=== PATIENT | female | born 1985 | race Caucasian/White ===

== ENCOUNTER 2017-01-06 14:21 | Emergency (ER) | payer OTHER ==
[~2017-01-06] VITALS: Ht 154.9 cm; Wt 87.2 kg
[2017-01-06 15:17] LABS: HEMATOCRIT 43.1 % (36.0-46.0); MCH 26.2 PG (29.0-34.0); MCHC 31.1 G/DL (30.0-36.0); MCV 84.2 FL (83-99); MEAN PLAT.VOLUME 11.1 uM^3 (9.5-12.4); PLATELET COUNT 222 K/uL (156-360); RBC DIS.WIDTH-CV 13.1 % (11.8-14.6); RBC DIS.WIDTH-SD 40.3 % (39-53); RED BLOOD COUNT 5.12 M/uL (3.80-5.20); WHITE BLOOD COUNT 5.1 K/uL (4.1-10.2)
[2017-01-06 15:31] LABS: CHLORIDE 106 mEq/L (99-109); POTASSIUM 3.8 mEq/L (3.7-5.4); SODIUM 138 mEq/L (136-147)
[2017-01-06 15:33] LABS: GLUCOSE 95 mg/dL (70-99)
[2017-01-06 15:34] LABS: ANION GAP 7 MEQ/L (2-14)
[2017-01-06 15:35] LABS: TOTAL BILIRUBIN 0.4 mg/dL (0.0-1.0)
[2017-01-06 15:37] LABS: ALKALINE PHOSPHATASE 52 IU/L (3-129); GFR ESTIMATE (CALCULATED) > 59 mL/min/
[2017-01-06 15:38] LABS: UREA NITROGEN (BUN) 10 mg/dL (9-23)
[2017-01-06 15:45] LABS: QUANTITATIVE HCG < 4.0 MIU/ML
[2017-01-06 17:14] LABS: BILIRUBIN NEGATIVE; BLOOD NEGATIVE; COLOR YELLOW ((YELLOW)); GLUCOSE (STRIP) NEGATIVE; KETONES 5; LEUKOCYTES NEGATIVE; NITRITE NEGATIVE; PROTEIN (STRIP) NEGATIVE; SPECIFIC GRAVITY 1.028 (1.000-1.030)
[2017-01-06 17:15] LABS: ADD MIUA? NO; UCUL ADDED? NO
[2017-01-06 18:16] LABS: INFLUENZA A VIRAL ANTIGEN NEGATIVE; INFLUENZA B VIRAL ANTIGEN NEGATIVE
[2017-01-06] MEDS ORDERED: ZOFRAN ODT4 MG PO (18:43)
[2017-01-06] MEDS ORDERED: NAPROSYN500 MG PO (18:43)
[2017-01-06 19:03] VITALS: BP 110/69
== END 2017-01-06 19:17 | disposition home or self-care (01) ==
LOC: EME 14:21
PROVIDERS: Physician Assistant
DX: B34.9 Viral infection, unspecified (principal); R11.0 Nausea; R51 Headache; R10.9 Unspecified abdominal pain; M79.1 Myalgia
CPT/HCPCS: 80053; 81003; 84702; 85027; 87502; 87651 90; 99281; 99285

== ENCOUNTER 2017-10-12 06:06 | Emergency (ER) | payer OTHER ==
[~2017-10-12] VITALS: Ht 154.9 cm; Wt 97.8 kg
[~2017-10-12 06:06] MED LIST: NAPROSYN500 MG PO; ZOFRAN ODT4 MG PO
[2017-10-12 07:34] LABS: HEMATOCRIT 43.2 % (36.0-46.0); HEMOGLOBIN 13.9 G/DL (11.9-15.5); MCH 26.4 PG (29.0-34.0); MCHC 32.2 G/DL (30.0-36.0); MCV 82.1 FL (83-99); PLATELET COUNT 355 K/uL (156-360); RBC DIS.WIDTH-SD 38.7 % (39-53); RED BLOOD COUNT 5.26 M/uL (3.80-5.20); WHITE BLOOD COUNT 8.9 K/uL (4.1-10.2)
[2017-10-12 07:53] LABS: CHLORIDE 107 mEq/L (99-109); POTASSIUM 4.6 mEq/L (3.7-5.4); SODIUM 138 mEq/L (136-147)
[2017-10-12 07:55] LABS: GLUCOSE 107 mg/dL (70-99); TOTAL PROTEIN 8.3 g/dL (6.4-8.3)
[2017-10-12 07:57] LABS: TOTAL BILIRUBIN 0.3 mg/dL (0.0-1.0)
[2017-10-12 07:59] LABS: ALKALINE PHOSPHATASE 73 IU/L (3-129); CREATININE 0.8 mg/dL (0.6-1.3); GFR ESTIMATE (CALCULATED) > 59 mL/min/
[2017-10-12 08:00] LABS: UREA NITROGEN (BUN) 17 mg/dL (9-23)
[2017-10-12 08:01] LABS: AST (GOT) 23 IU/L (2-34)
[2017-10-12 08:02] LABS: ALT (GPT) 18 IU/L (3-49); LIPASE 21 U/L (1.0-51.0)
[2017-10-12 08:08] LABS: QUANTITATIVE HCG < 4.0 MIU/ML
[2017-10-12 08:21] LABS: ALBUMIN 4.1 g/dL (3.2-4.8)
[2017-10-12 08:32] VITALS: BP 114/81
== END 2017-10-12 08:33 | disposition home or self-care (01) ==
LOC: EME 06:06
PROVIDERS: Nurse Practitioner Family
DX: B34.9 Viral infection, unspecified (principal); J02.9 Acute pharyngitis, unspecified; R19.7 Diarrhea, unspecified
CPT/HCPCS: 80053; 83690; 84702; 85027; 87502; 87651 90; 99281; 99284